=== PATIENT | female | born 1980 | race Caucasian/White ===

== ENCOUNTER 2021-10-28 21:37 | Emergency (ER) | payer SELFPAY ==
[~2021-10-28] VITALS: Ht 167.6 cm; Wt 93.0 kg
[2021-10-28 21:54] VITALS: BP 143/84
[2021-10-28] MEDS ORDERED: IBUPROFEN 800 MG TAB PO ONE (22:00)
--- NOTE | 2021-10-28 22:01 | NUR ---
douglasd assessed pt in triage, gave verbal orders. orders carried out.
[2021-10-28] MEDS ORDERED: IBUPROFEN 800 MG TAB ONE (22:03)
[2021-10-28] MEDS ORDERED: HYDR-5080 PO (23:31)
[2021-10-28] MEDS ORDERED: IBUP-1878 PO (23:31)
[2021-10-29] VITALS: BP 143/84
--- NOTE | 2021-10-29 | NUR ---
Patient discharged with v/s stable. Written and verbal after care instructions given and explained. Patient alert, oriented and verbalized understanding of instructions. Ambulatory with steady gait. All questions addressed prior to discharge. ID band removed. Patient advised to follow up with PMD. Rx of norco and ibuprofen given. Patient educated on indication of medication including possible reaction and side effects. Opportunity to ask questions provided and answered.
== END 2021-10-29 | disposition home or self-care (01) ==
LOC: MED 21:37
DX: S22.42XA Multiple fractures of ribs, left side, initial encounter for closed fracture (principal); M25.462 Effusion, left knee; Z79.899 Other long term (current) drug therapy; V89.2XXA Person injured in unspecified motor-vehicle accident, traffic, initial encounter; Y93.89 Activity, other specified; Y92.89 Other specified places as the place of occurrence of the external cause; Y99.8 Other external cause status
CPT/HCPCS: 71101; 73562; 99284

== ENCOUNTER 2023-04-11 02:08 | Emergency (ER) | payer OTHER ==
[~2023-04-11] VITALS: Ht 167.6 cm; Wt 95.3 kg
[~2023-04-11 02:08] MED LIST: HYDR-5080 PO; IBUP-1878 PO
[2023-04-11 02:10] VITALS: BP 156/89; PULSE 88; RESP 15; TEMP 97.1; O2SAT 100
[2023-04-11] MEDS ORDERED: AMOX875T3 PO (02:37)
[2023-04-11] MEDS: ACETAMINOPHEN EXTRA STRENGTH 500 MG TAB PO ONE (02:37)
[2023-04-11] MEDS ORDERED: IBUP-2213 PO (02:37)
[2023-04-11] MEDS ORDERED: FLONAS NS (02:37)
[2023-04-11] MEDS: IBUPROFEN 600 MG TAB PO ONE (02:37)
== END 2023-04-11 02:46 | disposition home or self-care (01) ==
LOC: MED 02:08
DX: H68.002 Unspecified Eustachian salpingitis, left ear (principal); F17.210 Nicotine dependence, cigarettes, uncomplicated; Z79.899 Other long term (current) drug therapy
CPT/HCPCS: 99283